=== PATIENT | male | born 1955 | race Caucasian/White ===

== ENCOUNTER 2017-03-15 13:55 | Emergency (ER) | payer OTHER ==
[2017-03-15 14:42] VITALS: BP 146/70; PULSE 79; RESP 18; TEMP 98.4
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
--- NOTE | 2017-03-15 15:22 | XR ---
EXAMINATION TYPE: XR ribs RT w pa chest xray DATE OF EXAM: 03/15/2017 CLINICAL HISTORY: Right rib pain after fall TECHNIQUE: Single frontal view of the chest is obtained. Additional views of the right ribs were obta ined in 2 views. COMPARISON: None FINDINGS: There is no focal air space opacity, pleural effusion, or pneumothorax seen. The cardiac silhouette size is within normal limits. The osseous structures are intact. No displaced rib fractu re seen. Multiple large calcified gallstones are noted within the right upper quadrant. IMPRESSION: 1. No acute cardiopulmonary process or displaced rib fracture. 2. Lamellated large calcified gallstones.
== END 2017-03-15 15:32 | disposition home or self-care (01) ==
LOC: EC 13:55
DX: S20.211A Contusion of right front wall of thorax, initial encounter (principal); K80.20 Calculus of gallbladder without cholecystitis without obstruction; I10 Essential (primary) hypertension; E11.9 Type 2 diabetes mellitus without complications; Z87.891 Personal history of nicotine dependence; Z79.84 Long term (current) use of oral hypoglycemic drugs; Z79.899 Other long term (current) drug therapy; W18.09XA Striking against other object with subsequent fall, initial encounter; Y93.01 Activity, walking, marching and hiking
CPT/HCPCS: 99283

== ENCOUNTER → 2020-02-23 | Outpatient (CLI) | payer MEDICARE, OTHER ==
[~2020-02-23] MED LIST: PENICILLIN G BENZATHINE 1,200,000 UNIT/2 ML SYRINGE IM NR
== END | disposition home or self-care (01) ==
LOC: PROCWHC3 14:13
PROVIDERS: ATTEND General Practice
DX: A53.9 Syphilis, unspecified (principal)
CPT/HCPCS: 96372; J0561

== ENCOUNTER 2025-01-16 23:41 | Emergency (ER) | payer MEDICARE, OTHER ==
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
[2025-01-17] MEDS: IBUPROFEN 600 MG TAB PO STA (00:58)
[2025-01-17] MEDS: AMOXIC-POT CLAV 875-125MG 1 EACH TAB PO STA (00:58)
[2025-01-17] MEDS: ACET/COD 300 MG/30 MG STARTER PACK TAB BTL PO STA (00:58)
[2025-01-17] MEDS: CIPROFLOXACIN-DEXAMETH 0.3-0.1% DROPS 7.5 ML BTL LEFT EAR ONE (00:59)
[2025-01-17 01:14] VITALS: BP 193/93; PULSE 74; RESP 16; TEMP 98.2
== END 2025-01-17 01:03 | disposition home or self-care (01) ==
LOC: EC 23:41
DX: H66.92 Otitis media, unspecified, left ear (principal); Z87.891 Personal history of nicotine dependence
CPT/HCPCS: 99282